=== PATIENT | female | born 1990 | race Caucasian/White ===

== ENCOUNTER → 2017-05-02 | Outpatient (CLI) | payer SELFPAY ==
[~2017-05-02] MED LIST: BUSPAR10 MG PO; CRESTOR 10MG10 MG PO; MULTIVITAMIN1 CTB PO; ORTHO TRI-CYCLE1 TAB PO; SEROQUEL 2525 MG/TAB PO
== END ==
LOC: COL.LAB 16:11
PROVIDERS: Nurse Practitioner
DX: E78.5 Hyperlipidemia, unspecified (principal)

== ENCOUNTER → 2017-07-01 | Outpatient (CLI) | payer SELFPAY | LOC: COL.RAD 07:30 | DX: J34.2 Deviated nasal septum (principal) ==

== ENCOUNTER 2018-01-19 14:32 | Day surgery (SDC) | payer BC ==
[~2018-01-19] VITALS: Ht 172.7 cm; Wt 73.6 kg
[2018-01-19] MEDS ORDERED: CRESTOR40 MG PO (14:58)
[2018-01-19] MEDS ORDERED: ZOLOFT 100MG100 MG PO (14:59)
[2018-01-19] MEDS ORDERED: PRILOSEC10 MG PO (14:59)
[2018-01-19] MEDS ORDERED: YAZ 28 3 MG-0.01 TAB PO (14:59)
[2018-01-19 15:01] LABS: AMYLASE 92 U/L (30-110); LIPASE 84 U/L (23-300)
[2018-01-19 15:06] VITALS: BP 133/85; PULSE 71; TEMP 98.8
[2018-01-19 16:12] VITALS: BP 115/77; PULSE 65; TEMP 997.9
[2018-01-19 16:27] VITALS: BP 117/82; PULSE 66
[2018-01-19 16:42] VITALS: BP 135/75; PULSE 62
== END 2018-01-19 16:48 | disposition home or self-care (01) ==
LOC: SDCO 14:32
PROVIDERS: Internal Medicine Gastroenterology
DX: K59.00 Constipation, unspecified (principal); K21.0 Gastro-esophageal reflux disease with esophagitis; R19.7 Diarrhea, unspecified; F32.9 Major depressive disorder, single episode, unspecified; F41.9 Anxiety disorder, unspecified; G43.909 Migraine, unspecified, not intractable, without status migrainosus; Z83.79 Family history of other diseases of the digestive system
CPT/HCPCS: OP; J2250; J2704; J3010; J7030

== ENCOUNTER → 2018-06-22 | Outpatient (CLI) | payer BC ==
[~2018-06-22] MED LIST changes: +CRESTOR40 MG PO; +PRILOSEC10 MG PO; +YAZ 28 3 MG-0.01 TAB PO; +ZOLOFT 100MG100 MG PO
== END ==
LOC: COL.RAD 12:08
DX: R10.11 Right upper quadrant pain (principal)
CPT/HCPCS: A9537

== ENCOUNTER → 2020-03-06 | Outpatient (CLI) | payer BC | LOC: BHSO 12:50 | DX: F31.81 Bipolar II disorder (principal) ==